=== PATIENT | female | born 1980 | race Caucasian/White ===

== ENCOUNTER 2023-03-20 00:48 | Emergency (ER) | payer SELFPAY ==
[~2023-03-20] VITALS: Ht 172.7 cm; Wt 54.4 kg
[2023-03-20 00:55] VITALS: BP_SYST 126; PULSE 99; RESP 18; TEMP 98.2; O2SAT 98
== END 2023-03-20 01:30 | disposition left against medical advice (07) ==
LOC: SED 00:48
DX: M54.9 Dorsalgia, unspecified (principal); Z53.21 Procedure and treatment not carried out due to patient leaving prior to being seen by health care provider
CPT/HCPCS: 99281